=== PATIENT | female | born 1955 | race Caucasian/White ===

== ENCOUNTER 2016-12-04 09:16 | Emergency (ER) | payer OTHER ==
[2016-12-04 09:29] VITALS: BP 155/88
--- NOTE | 2016-12-04 10:19 | RAD ---
Indication: Pain and lateral bruising RIGHT ankle post fall. History of melanoma surgery on RIGHT foot. Comparison: None. Technique: AP, mortise, and lateral views RIGHT ankle. AP, lateral, and oblique views RIGHT foot. Report: Distal diaphyseal mildly comminuted fracture of the fibula centered 7 cm above the ankle mortise with one cortex width lateral displacement. Coronal oriented fracture at the posterior malleolus of the tibial plafond with approximate 2 mm cephalad displacement. Mild widening of the distal tibia fibula clear space and medial ankle mortise. 3 mm sharply angulated acute appearing loose body at the anterior recess of the talocrural joint. Os trigonum accessory ossicle noted posteriorly. Severe soft tissue swelling about the ankle most prominent over the lateral malleolus No additional fracture evident at the RIGHT foot. Normal articular alignment throughout the foot. Mild osteoarthritis at the first metatarsal phalangeal joint. IMPRESSION: Herrera type C high fibular fracture pattern with associated tibiofibular syndesmosis disruption and widening of the ankle mortise. Associated fracture at the posterior margin of the tibial plafond. This fracture pattern is typically associated with deltoid ligament injury in absence of a medial malleolus fracture.
--- NOTE | 2016-12-04 10:51 | UC ---
Lower Extremity/Ankle HPI - HPI Summary HPI Summary: Tripped on cat and slipped on ice trying to walk into house last night. Sudden sharp pain in R ankle and foot, R heel felt "squishy" right afterward. Ambulating with extreme difficulty and assistance of . Denies significant pain at rest. - History of Current Complaint Chief Complaint: UCLowerExtremity Stated Complaint: ANKLE INJURY Time Seen by Provider: 12/04/16 09:34 Hx Obtained From: Patient ?: No Onset/Duration: Sudden Onset Severity Initially: Severe Severity Currently: Moderate Aggravating Factor(s): Standing, Ambulation Alleviating Factor(s): Rest Able to Bear Weight: Yes - only with assistance - Allergies/Home Medications Allergies/Adverse Reactions: Allergies Allergy/AdvReac Type Severity Reaction Status Date / Time No Known Allergies Allergy Verified 12/04/16 09:29 Home Medications: Home Medications Acetaminophen [Eql Acetaminophen Extra] 2 tab PRN 12/04/16 [History] Amlodipine Besylate-Valsartan [Exforge 10-160 mg-] 1 tab PO DAILY 12/04/16 [ History Confirmed 12/04/16] Aspirin [Qc Enteric Aspirin] 1 tab PO DAILY 12/04/16 [History Confirmed 12/04/16 ] Atorvastatin* [Lipitor 40 MG*] 1 tab PO DAILY 12/04/16 [History Confirmed ] Bisoprolol & Hydrochlorothiazi [Ziac 2.5-6.25 mg-] 1 tab PO DAILY 12/04/16 [ History Confirmed 12/04/16] Esomeprazole Magnesium [Nexium] 20 mg PO DAILY 12/04/16 [History Confirmed 12/04] Insulin Lispro [Humalog] 12/04/16 [History] Liraglutide [Victoza] 12/04/16 [History] Toujeo 60 units SUBCUT DAILY 12/04/16 [History] metFORMIN* [Glucophage*] 1 tab PO BID 12/04/16 [History Confirmed 12/04/16] PMH/Surg Hx/FS Hx/Imm Hx Endocrine History Of: Reports: Diabetes - DM II Cardiovascular History Of: Reports: Cardiac Disorders - Heart Murmor, Hypertension Respiratory History Of: Denies: COPD, Asthma - Surgical History Surgical History: Yes Surgery Procedure, Year, and Place: Partial Hysterectomy 1989 - Family History Known Family History: Positive: Other - osteoporosis in mother - Social History Lives: With Family Alcohol Use: Occasionally Alcohol Amount: 5-6 beers 2 x week Substance Use Type: None Smoking Status (MU): Never Smoked Tobacco Review of Systems Constitutional: Negative Skin: Negative Eyes: Negative ENT: Negative Respiratory: Negative Cardiovascular: Negative Gastrointestinal: Negative Genitourinary: Negative Motor: Negative Neurovascular: Negative Musculoskeletal: Arthralgia, Decreased ROM, Edema Neurological: Negative Psychological: Negative All Other Systems Reviewed And Are Negative: Yes Physical Exam Triage Information Reviewed: Yes Appearance: Well-Appearing, No Pain Distress, Well-Nourished Vital Signs: Initial Vital Signs Temp 98.0 F 12/04/16 09:20 Pulse 76 12/04/16 09:20 Resp 16 12/04/16 09:20 BP 155/88 12/04/16 09:20 Pulse Ox 100 12/04/16 09:20 Vital Signs Reviewed: Yes Eye Exam: Normal Eyes: Positive: Conjunctiva Clear ENT Exam: Normal ENT: Positive: Normal ENT inspection, Hearing grossly normal, Pharynx normal, TMs normal Dental Exam: Normal Neck exam: Normal Neck: Positive: Supple, Nontender, No Lymphadenopathy Respiratory Exam: Normal Respiratory: Positive: Chest non-tender, Lungs clear, Normal breath sounds, No respiratory distress, No accessory muscle use Cardiovascular Exam: Normal Cardiovascular: Positive: RRR, No Murmur Musculoskeletal: Positive: ROM Limited @ - R ankle, Other: - marked swelling, bruising, and tenderness in R ankle and foot. Neurological Exam: Normal Psychological Exam: Normal Skin Exam: Normal Lower Extremity Course/Dx - Differential Dx/Diagnosis Provider Diagnoses: R midshaft fibular fracture. R posterior malleolar fracture Discharge - Discharge Plan Condition: Stable Disposition: HOME Patient Education Materials: Ankle Fracture (ED) Referrals: Frank Merritt MD [Medical Doctor] - Additional Instructions: Please follow up with Dr. Merritt right away as we discussed at [address] [place] [address]. Do not put any pressure whatsoever on your injured ankle.
== END 2016-12-04 10:55 | disposition home or self-care (01) ==
LOC: UCEAST 09:16
DX: S82.401A Unspecified fracture of shaft of right fibula, initial encounter for closed fracture (principal); S82.891A Other fracture of right lower leg, initial encounter for closed fracture; W01.0XXA Fall on same level from slipping, tripping and stumbling without subsequent striking against object, initial encounter; Y93.9 Activity, unspecified; Y92.9 Unspecified place or not applicable; E11.9 Type 2 diabetes mellitus without complications; Z79.4 Long term (current) use of insulin; Z79.84 Long term (current) use of oral hypoglycemic drugs; I10 Essential (primary) hypertension; R01.1 Cardiac murmur, unspecified
CPT/HCPCS: 99213; G0463

== ENCOUNTER 2016-12-08 07:52 | Day surgery (SDC) | payer OTHER ==
[~2016-12-08 07:52] MED LIST: Buffered Lidocaine 1% SYR 3ML* 3 ML/SYR SYRINGE INTRADERM ONE; Famotidine IV* 10 MG/ML 2 ML (20 mg) IV ONE; Metoclopramide TAB* 10 MG PO ONE
[2016-12-08] MEDS ORDERED: Famotidine IV* 10 MG/ML 2 ML (20 mg) ONE (08:14)
[2016-12-08] MEDS ORDERED: Buffered Lidocaine 1% SYR 3ML* 3 ML/SYR SYRINGE ONE (08:14)
[2016-12-08] MEDS ORDERED: Metoclopramide TAB* 10 MG ONE (08:14)
[2016-12-08] MEDS ORDERED: ceFAZolin 2 GM PREMIX (*) 2 GM/50 ML BAG IVPB ONE (08:14)
[2016-12-08] MEDS ORDERED: Ondansetron INJ* 2 MG/ML VIAL ONE (08:48)
[2016-12-08] MEDS ORDERED: Propofol* 10 MG/ML 20 ML BTL IV PUSH ONE (08:48)
[2016-12-08] MEDS ORDERED: Dexamethasone IV* 4 MG/ML 1 ML (4 MG) ONE (08:48)
[2016-12-08] MEDS ORDERED: fentaNYL* 50 MCG/ML 2 ML VIAL (100 MCG VIAL) ONE ×3 (08:48→11:07)
[2016-12-08] MEDS ORDERED: Ketorolac INJ* 30 MG/ML 1 ML VIAL ONE (08:48)
[2016-12-08] MEDS ORDERED: Lidocaine 2% PF * 5 ML VIAL ONE (08:48)
[2016-12-08] MEDS ORDERED: Midazolam* 1 MG/ML 5 ML VIAL (5 MG) ONE (08:49)
[2016-12-08] MEDS ORDERED: KETAMINE HCL* 50 MG/ML 10 ML VIAL ONE (08:49)
[2016-12-08] MEDS ORDERED: Cisatracurium* 2 MG/ML MDV 10 ML ONE (09:19)
[2016-12-08] MEDS ORDERED: Phenylephrine IV* 40 MCG/ML 10 ML SYRINGE ONE (09:31)
[2016-12-08] MEDS ORDERED: EPHEDrine (Pressors)* 50 MG/ML VIAL ONE (09:49)
[2016-12-08] MEDS ORDERED: Phenylephrine INJ* 10 MG/ML 1 ML VIAL (10 MG) ONE (09:51)
[2016-12-08] MEDS ORDERED: fentaNYL* 50 MCG/ML 2 ML VIAL (100 MCG VIAL) IV PRN (10:06)
[2016-12-08] MEDS ORDERED: oxyCODONE/Acetamin 5/325 MG* TAB PO PRN (10:06)
[2016-12-08] MEDS ORDERED: Ondansetron INJ* 2 MG/ML VIAL IV PRN (10:06)
[2016-12-08] MEDS ORDERED: HYDROmorphone INJ* 1 MG/ML CARPUJECT SYRINGE IV PRN (10:06)
[2016-12-08] MEDS ORDERED: Bupivacaine 0.5% SDV PF* 30 ML VIAL ONE (11:04)
[2016-12-08] MEDS ORDERED: oxyCODONE/Acetamin 5/325 MG* TAB ONE (11:07)
[2016-12-08] MEDS ORDERED: Levalbuterol 1.25MG/0.5ML NEB ONE (12:29)
[2016-12-08 13:57] VITALS: BP 136/68
--- NOTE | 2016-12-09 02:32 | OP ---
DATE OF OPERATION: 12/08/16 - [facility] DATE OF : 55 SURGEON: Dr. Frank Merritt. CAUSTIC LOADER: NO Jones ANESTHESIOLOGIST: Nilesh Fuentes MD ANESTHESIA: General PRE-OP DIAGNOSIS: Right Herrera C PLR type fracture. POST-OP DIAGNOSIS: Right Herrera C PLR type fracture. OPERATIVE PROCEDURE: Internal fixation, right fibula with syndesmotic repair. DESCRIPTION OF PROCEDURE: The patient was taken to the operating room where we opened up longitudinally along the lateral fibula to rule out visualization of the mid third fracture. There was a butterfly fragment posteriorly which was fixed with a K-wire and then I fashioned a 10-hole 3.5 mm recon plate to fit the posterolateral aspect of the fibula all the way down to the syndesmosis. I then dissected out the syndesmosis anteriorly where the torn fibers were apparent and made sure that the fibula was tightly and anatomically reduced against the tibia before I drilled through with the syndesmotic screws. These were four cortical. Proximally, we fixed the plate with cortical screws above and below the butterfly fragment. X-rays intraoperatively showed satisfactory position of all the bone fragments and hardware. We then irrigated laterally closing with Vicryl and nunu and a compression dressing plaster splint. [id number]/[facility] #: [id number] MTDD
--- NOTE | 2016-12-09 07:42 | RAD ---
CPT II Codes: 6045F INDICATION: Right ankle fracture TECHNIQUE: Intraoperative fluoroscopy was provided during plate and screw ORIF of the right fibula. FINDINGS: A single spot film depicts a plate and screw fixator overlying the distal right fibula. Fluoroscopy time: 1.7 seconds IMPRESSION: As above.
== END 2016-12-08 13:48 | disposition home or self-care (01) ==
LOC: OR 07:52
PROVIDERS: ATTEND Orthopaedic Surgery
DX: S82.61XA Displaced fracture of lateral malleolus of right fibula, initial encounter for closed fracture (principal); I10 Essential (primary) hypertension; E11.8 Type 2 diabetes mellitus with unspecified complications; Z79.4 Long term (current) use of insulin; W00.9XXA Unspecified fall due to ice and snow, initial encounter; Y92.008 Other place in unspecified non-institutional (private) residence as the place of occurrence of the external cause
CPT/HCPCS: 76000; A9270-GY; C1713; C1776; J0690; J1100; J1885; J2250; J2405; J2704; J3010

== ENCOUNTER 2017-12-14 06:11 | Day surgery (SDC) | payer OTHER ==
--- NOTE | 2017-12-03 17:31 | HP ---
PREOPERATIVE HISTORY AND PHYSICAL: DATE OF ADMISSION: 12/14/17 PROVIDER: Dr. Frank Merritt.* (DICTATED BY NO CARRASCO) CHIEF COMPLAINT: Right ankle pain. HISTORY OF PRESENT ILLNESS: Essence is a 62-year-old female followed by Dr. Merritt for a Herrera C fracture of the right ankle. She underwent open reduction and internal fixation and had been doing very well. She has had some persistent wound breakdown at the proximal lateral aspect of the incision that has not improved despite antibiotics and dressing changes. She also has moderate edema throughout the ankle regularly. She denies any new injury. Denies paresthesias or numbness. Denies fevers or chills. It was recommended she undergo hardware removal with wound debridement and closure. PAST MEDICAL HISTORY: Type 2 diabetes, hypercholesterolemia, hypertension, and GERD. PAST SURGICAL HISTORY: Right ankle ORIF, right foot melanoma excision, hysterectomy. She reports no complications with anesthesia. CURRENT MEDICATIONS: 1. Toujeo 60 units subcu daily. 2. Victoza 1.8 mg injected daily. 3. Humalog sliding scale. 4. Ziac 5/6.25 mg 1 p.o. q. day. 5. Lipitor 40 mg 1 p.o. q.h.s. 6. Exforge 5/320 mg p.o. q. day. 7. Metformin HCl 500 mg 1 p.o. b.i.d. 8. Nexium 24HR 20 mg 1 p.o. q. day. ALLERGIES: No known drug allergies. FAMILY HISTORY: Positive for diabetes in her mother, high blood pressure in her mother, cancer and osteoporosis in her mother. SOCIAL HISTORY: She lives with her . 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 She denies tobacco use. She drinks 12 alcoholic beverages per week. She enjoys walking for exercise. REVIEW OF SYSTEMS: A 14-point review of systems was discussed with the patient in her visit today and also symptoms were negative except discussed in the HPI. PHYSICAL EXAMINATION GENERAL: She is a well-developed, well-nourished pleasant female, in no acute distress at rest. She is alert and oriented x3 with appropriate mood and affect. VITAL SIGNS: The patient is 5 feet 2 inches, 199 pounds. Blood pressure 126/76 , pulse 82, respirations 14, temperature 98.1. HEENT: Normocephalic, atraumatic. Hearing and vision are grossly intact. NECK: Her trachea is midline. RESPIRATORY: Lungs are clear to auscultation bilaterally. No wheezes, rales, or rhonchi. CARDIOVASCULAR: Regular rate and rhythm. No murmurs, rubs, or gallops. Normal S1, S2. ABDOMEN: Soft, nondistended, and nontender. Normal bowel sounds. EXTREMITIES: Exam of the right lower extremity, the patient has a couple of areas on the proximal wound laterally that are scabbed over. There is no significant drainage. No significant erythema. There is mild edema throughout the ankle. She has good hindfoot range of motion with 5/5 strength. Sensation to light touch is intact. She has a normal vascular exam. IMPRESSION: Painful hardware of the right ankle with wound breakdown. PLAN: The patient is to undergo right ankle hardware removal by Dr. Merritt on 12/14/17. The risks, benefits, and postoperative course were discussed with the patient at length and she would like to proceed. A small prescription for oxycodone was sent to her pharmacy for postoperative pain. All of her questions were answered to her full satisfaction. She is understanding to call if she develops problems or concerns. NO CARRASCO [id number]/[facility] #: [id number] MTDD
[~2017-12-14 06:11] MED LIST changes: +Buffered Lidocaine 0.9% SYRIN* 5 ML/SYR SYRINGE INTRADERM ONE; -Buffered Lidocaine 1% SYR 3ML* 3 ML/SYR SYRINGE INTRADERM ONE; -Metoclopramide TAB* 10 MG PO ONE
[2017-12-14] MEDS ORDERED: Famotidine IV* 10 MG/ML 2 ML (20 mg) ONE (06:32)
[2017-12-14] MEDS ORDERED: ceFAZolin 2 GM PREMIX (*) 2 GM/50 ML BAG IVPB ONE (06:32)
[2017-12-14] MEDS ORDERED: Midazolam* 1 MG/ML 2 ML VIAL (2 MG) ONE (07:09)
[2017-12-14] MEDS ORDERED: fentaNYL* 50 MCG/ML 2 ML VIAL (100 MCG VIAL) ONE ×2 (07:09→07:53)
[2017-12-14] MEDS ORDERED: Naloxone* 0.4 MG/ML 1 ML VIAL IV PRN (07:22)
[2017-12-14] MEDS ORDERED: oxyCODONE/Acetamin 5/325 MG* TAB PO PRN (07:22)
[2017-12-14] MEDS ORDERED: PROCHLORPERAZINE INJ 5 MG/ML 2 ML VIAL IV PRN (07:22)
[2017-12-14] MEDS ORDERED: fentaNYL* 50 MCG/ML 2 ML VIAL (100 MCG VIAL) IV PRN (07:22)
[2017-12-14] MEDS ORDERED: DiMENhydriNATE IV* 50 MG/ML VIAL IV PUSH PRN (07:22)
[2017-12-14] MEDS ORDERED: HYDROcodone/ACETAMIN 5-325 MG* 1 TAB PO PRN (07:22)
[2017-12-14] MEDS ORDERED: Bupivacaine 0.5% SDV PF* 10-30ML VIAL ONE (07:30)
[2017-12-14] MEDS ORDERED: Propofol* 10 MG/ML 20 ML BTL IV PUSH ONE (07:33)
[2017-12-14] MEDS ORDERED: Lidocaine 2% PF * 5 ML VIAL ONE (07:33)
[2017-12-14] MEDS ORDERED: EPHEDrine (Pressors)* 50 MG/ML VIAL ONE (07:51)
[2017-12-14] MEDS ORDERED: Ondansetron INJ* 2 MG/ML VIAL ONE (07:58)
[2017-12-14 09:16] VITALS: BP 124/78
--- NOTE | 2017-12-15 13:42 | OP ---
DATE OF OPERATION: 12/14/17 - [facility] DATE OF : 55 ATTENDING SURGEON: Frank Merritt MD PICKLE SOLUTION MAKER: Holly Merlos PA-C. PRE-OP DIAGNOSIS: Retained painful hardware, right fibula. POST-OP DIAGNOSIS: Retained painful hardware, right fibula. OPERATIVE PROCEDURE: Removal of fibular plate, right ankle. DESCRIPTION OF PROCEDURE: The patient was taken to the operating room where a longitudinal incision was made along the fibula. We incised down directly to the plate elevating some of the fibrous tissue with the electrocautery. All the heads of the screws were removed without difficulty. The two most broken syndesmotic screws were left behind. We irrigated thoroughly closing with 2-0 Vicryl, nunu for the skin. Cultures were sent. [id number]/[facility] #: [id number] MARYBETH
== END 2017-12-14 09:34 | disposition home or self-care (01) ==
LOC: OR 06:11
PROVIDERS: ATTEND Orthopaedic Surgery
DX: T84.84XA Pain due to internal orthopedic prosthetic devices, implants and grafts, initial encounter (principal); Y83.1 Surgical operation with implant of artificial internal device as the cause of abnormal reaction of the patient, or of later complication, without mention of misadventure at the time of the procedure; E11.8 Type 2 diabetes mellitus with unspecified complications; Z79.4 Long term (current) use of insulin; Z79.84 Long term (current) use of oral hypoglycemic drugs; E78.00 Pure hypercholesterolemia, unspecified; I10 Essential (primary) hypertension; K21.9 Gastro-esophageal reflux disease without esophagitis; S82.891S Other fracture of right lower leg, sequela; X58.XXXS Exposure to other specified factors, sequela
CPT/HCPCS: 87070; 87073; 87077; 87184; 87186; 87205; 88300; J0690; J2250; J2405; J2704; J3010